=== PATIENT | female | born 1980 | race Caucasian/White ===

== ENCOUNTER 2023-09-23 22:41 | Emergency (ER) | payer OTHER, SELFPAY ==
[2023-09-23 22:43] VITALS: BP 117/52
[2023-09-23 23:16] VITALS: BP 109/74
[2023-09-23 23:26] LABS: % Basophils 0.3 % (0-2); % Eosinophils 1.7 % (0-6); % Immature Granulocytes 0.3 % (0-0.5); % Lymphocytes 47.6 % (20.5-51.1); % Monocytes 7.8 % (1.7-9.3); % Neutrophils 42.3 % (42.2-75.2); Absolute Eosinophils 0.1 10^3/uL (0-0.7); Absolute Monocytes 0.5 10^3/uL (0.1-0.6); Absolute Neutrophils 2.7 10^3/uL (1.4-6.5); Hematocrit 35.6 % (37.0-47.0); Hemoglobin 11.9 g/dL (12.0-16.0); Mean Corp Hgb Conc. 33.4 g/dL (33.0-37.0); Mean Corpuscular Hgb 28.5 pg (27.0-31.0); Mean Corpuscular Volume 85.4 fL (81.0-99.0); Mean Platelet Volume 9.4 fL (7.4-10.4); Nucleated Red Blood Cells % 0 %; Platelet Count 260 10^3/uL (130-400); Red Blood Cell Count 4.17 10^6/uL (4.20-5.40); Red Cell Dist. Width 12.1 % (11.5-14.5); White Blood Cell Count 6.4 10^3/uL (4.8-10.8)
[2023-09-23 23:45] LABS: HCG, Serum Qualitative Screen Negative
[2023-09-23 23:48] LABS: ALT (SGPT) 15 U/L (0-35); AST (SGOT) 23 U/L (14-36); Albumin 4.3 g/dl (3.5-5.0); Alkaline Phosphatase 49 U/L (38-126); Blood Urea Nitrogen 11 mg/dl (7-17); Calcium 9.3 mg/dl (8.4-10.2); Carbon Dioxide 28 mmol/L (22-30); Chloride 102 mmol/L (98-107); Glucose 109 mg/dl (70-99); Magnesium 1.8 mg/dl (1.6-2.3); Potassium 3.7 mmol/L (3.5-5.1); Sodium 137 mmol/L (135-145); Total Bilirubin 0.4 mg/dl (0.2-1.3); Total Protein 6.1 g/dl (6.3-8.2); eGFR > 60.00
[2023-09-24] VITALS: BP 101/63
[2023-09-24 00:09] LABS: Troponin I < 0.012 ng/ml
--- NOTE | 2023-09-24 00:38 | ED.GENMED ---
History of Present Illness
General
Chief Complaint: Cardiac Symptoms
Source: patient
Exam Limitations: none
Time Seen by Provider: 09/23/23 23:04
Nursing documentation reviewed up to this point in time: agreed with
Travel History
Have you had any contact with someone who has COVID-19?: No
Do you have any symptoms of coronavirus? Fever > 100 degrees, chills, cough, shortness of breath, sore throat, loss of taste or smell, muscle aches, or headache?: No
History of Present Illness
History of Present Illness:
This is a 42-year-old woman who has no significant past medical history but does admit to intermittent heart palpitations which she describes as her heart skipping a beat that has been intermittent over the past 2 years. Initially evaluated by her
PCP 1 year ago and prescribed propranolol at that time which she admits she has been poorly compliant with over the past year. More recently however with increased episodes of palpitations over the past week, which are most notable when she is
sitting or lying quietly, she resume propranolol 1 week ago.
Palpitations occasionally accompanied with brief cough as well as shakiness but she denies dizziness nor lightheadedness, no chest pain or pressure, but over the past week has had intermittent brief twinges of discomfort left upper chest. She has
had no shortness of breath, no nausea nor vomiting.
She denies URI symptoms, no fever nor chills nor congestion.
She does have history of migraine headaches and admits to increased migraine symptoms over this past spring. She normally takes Excedrin Migraine for headaches but due to palpitations she has been avoiding added caffeine and instead has been taking
a magnesium supplement which has been helpful.
She has scheduled a follow-up appointment with her PCP for September 27 but due to increased palpitations tonight, she presented to the ED.
She denies risk of status post hysterectomy.
Other than propranolol she takes no medicines on a daily basis.
No recent travel. She only consumes 1 cup of coffee per day other than this denies significant caffeine consumption, no alcohol nor drug use.
Since arrival to the ED, feeling improved with no return of palpitations.
Past History
Past History
ED Past Medical History: Other (Migraine headaches)
ED Past Surgical History: Gynecological (Hysterectomy)
Social History
Tobacco: Non-smoker
Alcohol: None
Drug: None
Personal:
Living: with family
Employment: Employed
Family History
Family History: Other (Noncontributory)
Phy Exam
Physical Exam
Physical Exam:
GENERAL: 42-year-old woman appears her stated age, bright and alert, pleasant, appears in no acute distress.
EYE: anicteric
NECK: Supple, nontender, no meningismus, no significant adenopathy.
ENT: posterior pharynx is clear, oral mucosa is moist. TM clear b/l, nares with moderately boggy pale blue turbinates.
CARDIAC: Regular rhythm, mildly bradycardic. no murmur. No rub.
LUNGS: Clear breath sounds bilaterally, no acute respiratory distress, no wheezes/rales/rhonchi
ABDOMEN: Soft, nondistended, without focal tenderness, normoactive BS.
NEUROLOGICAL: Alert and oriented x3, no focal neuro deficits. Gait is steady.
SKIN: Warm and dry, normal color, skin intact. No rash.
MUSCULOSKELETAL: No C/C/E. peripheral pulses are full and equal b/l. No palpable tenderness.
PSYCH: Normal and appropriate interaction.
Course
Orders/Labs/Results
Orders:
Orders
09/23/23 22:46
Electrocardiogram (*1) Urgent
Reason for Study: Palpitations
EKG- Treatment ONCE
09/23/23 23:07
Cardiac Monitoring- Treatment ONCE
Test Result ONCE
09/23/23 23:16
Complete Blood Count/With Diff Urgent
Comprehensive Metabolic Panel Urgent
Free T4 Urgent
HCG, Serum Qualitative Screen Urgent
Magnesium Urgent
TSH Reflex To Free T4 Urgent
09/23/23 23:36
Troponin I Urgent
Abnormal Lab Results
09/23/23
23:16
RBC 4.17 L 10^6/uL
(4.20-5.40)
Hgb 11.9 L g/dL
(12.0-16.0)
Hct 35.6 L %
(37.0-47.0)
Glucose 109 H mg/dl
(70-99)
Total Protein 6.1 L g/dl
(6.3-8.2)
TSH (Reflex) 9.50 H uIU/ml
(0.47-4.68)
09/23/23 23:16
09/23/23 23:16
Vital Signs
Initial and Last Documented VS:
Initial Vital Signs
Temp Pulse Resp BP Pulse Ox
98.3 F 54 18 117/52 100
09/23/23 22:43 09/23/23 22:43 09/23/23 22:43 09/23/23 22:43 09/23/23 22:43
Last Documented Vital Signs
Temp Pulse Resp BP Pulse Ox
98.3 F 55 15 101/63 97
09/23/23 22:43 09/24/23 00:30 09/24/23 00:30 09/24/23 00:00 09/24/23 00:30
MDM/Problems Addressed
Differential Diagnosis Includes:
Intermittent palpitations ongoing over the past 2 years but sporadic increased episodes occasionally accompanied with a brief cough as well as shakiness but denies dizziness nor lightheadedness, denies a sense of near syncope.
I suspect intermittent PVCs versus PACs. Other consideration is tacky versus bradycardia arrhythmia however less likely.
Concern for electrolyte abnormality, thyroid disorder.
Nothing in history to suspect substance use disorder.
Has been asymptomatic since arrival to the ED.
Monitor shows sinus bradycardia. She is hemodynamically stable. Sinus bradycardia likely due to propranolol which patient resumed earlier this week.
Will check labs as well as thyroid function. Will continue panel monitor assess for arrhythmia.
Ultimately patient will require to follow-up with PCP for which she has an appointment later this week. Would recommend for completeness sake follow-up with cardiology, Holter monitor and perhaps echocardiogram, assess for valvular disorder.
*Pulse Oximetry
Patient hypoxic: no
*EKG
Interpreted by ED Provider?: Yes
Interpretation: normal
Comparison EKG: no comparison EKG present
Rate: normal
Rhythm: sinus
[place]: normal axis
Interval: normal interval
QRS Pattern: normal QRS
Ischemia: no ischemia
*Chemical Sales Representative Interpretation
Rate: normal and bradycardiac
Interpretation: normal
Rhythm: sinus
*Critical Care Note
Total Time (30-74mins, 75-104mins- exclusive of procedures): Not Applicable
Update Note
Update Note:
09/24/2023 0053 AM
Labs are all unremarkable save for mildly elevated TSH at 9.50 with normal free T4 0.82.
Troponin is negative.
Monitor continues to show sinus bradycardia without ectopy and patient remains asymptomatic.
Borderline hypothyroidism may be contributing factor to palpitations but with normal free T4 would recommend holding off on thyroid replacement and instead follow-up with PCP for recheck of thyroid function in 1 to 2 months to assess trend.
ED Attending Note
-
Portions of this chart may have been created with voice recognition software.� Occasional wrong word or��sound alike� substitutions may have occurred due to the inherent limitations of voice recognition software.
Discharge Plan
Departure
Patient Disposition: Home (Routine Discharge)
Date of Disposition: 09/24/23
Time of Disposition: 00:55
Patient with high blood pressure during this ER visit?: No
Condition: Good
Discharge Problem:
Heart palpitations, TSH elevation
Instructions: Heart Palpitations
Prescriptions:
No Action
cephalexin 500 MG capsule
500 mg PO QID Qty: 28 0RF
Referrals:
Deb Brooke MD [Family Provider] - Keep scheduled appt
Interventions
Interventions:
*Risk Screen - Suicide Last Done: 09/23/23 22:43
*General Assessment Last Done: 09/23/23 22:55
*Neglect/Abuse Screening Last Done: 09/23/23 22:43
ED- Fall Risk Assessment Last Done: 09/23/23 22:55
*ED COVID-19 Vaccine History Last Done: 09/23/23 22:55
ED- Pulmonary Assessment Last Done: 09/23/23 22:55
ED- Cardiac Assessment Last Done: 09/23/23 22:55
Discharge Date and Time
Print Language: [id number]
[2023-09-24 00:49] LABS: Free T4 0.82 ng/dl (0.78-2.19)
[2023-09-24 01:00] VITALS: BP 98/59
== END 2023-09-24 01:09 | disposition home or self-care (01) ==
LOC: EMR 22:41
PROVIDERS: EMERGENCY PHYSICIAN Emergency Medicine; FAMILY PHYSICIAN Family Medicine
DX: R00.2 Palpitations (principal); R94.6 Abnormal results of thyroid function studies; R05.9 Cough, unspecified; Z91.148 Patient's other noncompliance with medication regimen for other reason; G43.909 Migraine, unspecified, not intractable, without status migrainosus; Z91.040 Latex allergy status; Z91.018 Allergy to other foods; Z86.16 Personal history of COVID-19
CPT/HCPCS: 99283; 80053; 83735; 84439; 84443; 84484; 84703; 85025; 93005